=== PATIENT | female | born 2000 ===

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

== ENCOUNTER 2018-04-18 19:03 | Emergency (ER) | payer MEDICAID ==
[2018-04-18 19:04] VITALS: BMI 23.4
[2018-04-18 20:19] LABS: BASO # 0.03 K/mm3 (0.0-2.0); BASO % 0.3 % (0.0-3.0); EOS % 0.4 % (1.5-5.0); GRAN # 7.83 (1.4-6.5); GRAN % 73.1 % (50.0-68.0); LYMPH # 2.3 (1.2-3.4); LYMPH % 21.8 % (22.0-35.0); MEAN CELL VOLUME 86.9 fl (80.0-105.0); MEAN CORPUSCULAR HEMOGLOBIN 29.2 pg (25.0-35.0); MEAN CORPUSCULAR HGB CONC 33.6 g/dl (31.0-37.0); MEAN PLATELET VOLUME 9.6 fl (7.0-11.0); MONO # 0.5 (0.1-0.6); MONO % 4.4 % (1.0-6.0); RBC 4.8 10^6/uL (3.5-6.1); RED CELL DISTRIBUTION WIDTH 12.1 % (11.5-14.5); URINE APPEARANCE SLIGHT-CLOUDY (CLEAR); URINE BILIRUBIN NEGATIVE (NEGATIVE); URINE BLOOD TRACE-INTACT (NEGATIVE); URINE COLOR YELLOW (YELLOW); URINE GLUCOSE (UA) NEGATIVE (NEGATIVE); URINE LEUKOCYTE ESTERASE TRACE Leu/uL (NEGATIVE); URINE PROTEIN NEGATIVE mg/dL (<30 mg/dL); URINE UROBILINOGEN 0.2 E.U./dL (<1 E.U./dL); WHITE BLOOD COUNT 10.7 10^3/uL (4.5-11.0)
[2018-04-18 20:28] LABS: URINE EPITHELIAL CELLS 0 - 2 /hpf (0-5); URINE RBC 0 - 2 /hpf (0-2); URINE WBC 0 - 2 /hpf (0-6)
[2018-04-18 20:32] LABS: ALB/GLOB RATIO 1.5 (1.1-1.8); ALBUMIN 5.2 g/dL (3.0-4.8); ALT/SGPT 19 U/L (7-56); AST/SGOT 22 U/L (14-36); BLOOD UREA NITROGEN 12 mg/dL (7-21); GFR NON-AFRICAN AMERICAN > 60
[2018-04-18 20:50] LABS: BARBITURATES, UR NEGATIVE (NEGATIVE); BENZODIAZEPINES, UR NEGATIVE (NEGATIVE); PHENCYCLIDINE, UR NEGATIVE (NEGATIVE)
[2018-04-18 20:52] VITALS: TEMP 98.2; O2SAT 100
[2018-04-18 21:07] LABS: OPIATES, UR NEGATIVE (NEGATIVE)
--- NOTE | 2018-04-18 22:02 | ED PDOC ---
Arrival/HPI - General Chief Complaint: Psychiatric Evaluation Time Seen by Provider: 04/18/18 19:25 Historian: Patient - History of Present Illness Narrative History of Present Illness (Text): 04/18/18 21:58 17 yo F with PMH of depression, brought in the ER by EMS for evaluation of depression and anxiety, states that her mother called the ambulance because she "didn't feel well." On further questioning, the patient states that she just felt depressed. She states that she has seen a psychiatrist in the past and used to take medications for her depression, however has not taken any medicine x 3 years. Denies any SI, HI, hallucinations, headache, fever, N/V, abdominal pain. Has no other complaints. Past Medical History - Infectious Disease Hx of Infectious Diseases: None - Cardiac Hx Hypertension: No - Pulmonary Hx Respiratory Disorders: Yes Hx Asthma: Yes - Neurological Hx Seizures: No - HEENT Hx HEENT Disorder: No - Renal Hx Renal Disorder: No - Endocrine/Metabolic Hx Endocrine Disorders: No - Hematological/Oncological Hx Cancer: No - Integumentary Hx Dermatological Disorder: No - Musculoskeletal/Rheumatological Hx Musculoskeletal Disorders: No - Gastrointestinal Hx Gastrointestinal Disorders: No (Has recurrent abdominal pain (see HPI).) - Genitourinary/Gynecological Hx Sexually Transmitted Diseases: No - Psychiatric Hx Psychophysiologic Disorder: Yes Hx Anxiety: Yes Hx Depression: Yes Hx Substance Use: Yes - Anesthesia Hx Anesthesia: No Family/Social History Family/Social History: No Known Family HX Smoking Status: Never Smoked Hx Alcohol Use: No Hx Substance Use: Yes Substance used: marijuana Allergies/Home Meds Allergies/Adverse Reactions: Allergies No Known Allergies Allergy (Verified 08/14/15 16:14) Home Medications: Home Meds Medication Instructions Recorded Confirmed Albuterol HFA [Ventolin HFA 90 2 puff INH PRN PRN 08/15/15 04/28/17 mcg/actuation (8 g)] Review of Systems - Review of Systems Constitutional: absent: Fatigue, Fevers Respiratory: absent: SOB, Cough Cardiovascular: absent: Chest Pain, Palpitations Gastrointestinal: absent: Abdominal Pain, Nausea, Vomiting Skin: absent: Rash, Skin Lesions Neurological: absent: Headache, Dizziness Psychiatric: Anxiety, Depression Physical Exam Vital Signs Temp Pulse Resp BP Pulse Ox 04/18/18 19:40 98.2 F 71 16 112/62 100 Temperature: Afebrile Blood Pressure: Normal Pulse: Regular Respiratory Rate: Normal Appearance: Positive for: Well-Appearing, Non-Toxic, Comfortable Pain Distress: None Mental Status: Positive for: Alert and Oriented X 3 - Systems Exam Head: Present: Atraumatic, Normocephalic Pupils: Present: PERRL Extroacular Muscles: Present: EOMI Conjunctiva: Present: Normal Mouth: Present: Moist Mucous Membranes Neck: Present: Normal Range of Motion Respiratory/Chest: Present: Clear to Auscultation, Good Air Exchange. No: Respiratory Distress, Accessory Muscle Use Cardiovascular: Present: Regular Rate and Rhythm, Normal S1, S2. No: Murmurs Abdomen: No: Tenderness, Distention, Peritoneal Signs Back: Present: Normal Inspection Upper Extremity: Present: Normal Inspection. No: Cyanosis, Edema Lower Extremity: Present: Normal Inspection. No: Edema Neurological: Present: GCS=15, CN II-XII Intact, Speech Normal Skin: Present: Warm, Dry, Normal Color. No: Rashes Psychiatric: Present: Alert, Oriented x 3, Normal Insight, Normal Concentration Medical Decision Making ED Course and Treatment: 04/18/18 21:57 Labs reviewed, patient is medically cleared for crisis evaluation. Patient is seen and evaluated by crisis. As per crisis evaluation, decision made for outpatient follow up as per Dr. Johnson. - Lab Interpretations Lab Results: 04/18/18 20:00 04/18/18 20:00 Lab Results 04/18/18 20:00: Alcohol, Quantitative < 10 04/18/18 20:00: Urine Opiates Screen Negative, Urine Methadone Screen Negative, Ur Barbiturates Screen Negative, Ur Phencyclidine Scrn Negative, Ur Amphetamines Screen Negative, U Benzodiazepines Scrn Negative, U Oth Cocaine Metabols Negative, U Cannabinoids Screen Positive H 04/18/18 20:00: Sodium 140, Potassium 4.1, Chloride 104, Carbon Dioxide 23, Anion Gap 17, BUN 12, Creatinine 0.7, Est GFR ( Amer) > 60, Est GFR (Non- Af Amer) > 60, Random Glucose 91, Calcium 10.0, Magnesium 2.1, Total Bilirubin 0.5, AST 22, ALT 19, Alkaline Phosphatase 70, Total Protein 8.6 H, Albumin 5.2 H , Globulin 3.4, Albumin/Globulin Ratio 1.5 04/18/18 20:00: Urine Color Yellow, Urine Appearance Slight-cloudy, Urine pH 6.0, Ur Specific [place] 1.025, Urine Protein Negative, Urine Glucose (UA) Negative, Urine Ketones Trace H, Urine Blood Trace-intact H, Urine Nitrate Negative, Urine Bilirubin Negative, Urine Urobilinogen 0.2, Ur Leukocyte Esterase Trace H, Urine RBC 0 - 2, Urine WBC 0 - 2, Ur Epithelial Cells 0 - 2 04/18/18 20:00: WBC 10.7, RBC 4.80, Hgb 14.0, Hct 41.7, MCV 86.9, MCH 29.2, MCHC 33.6, RDW 12.1, Plt Count 274, MPV 9.6, Gran % 73.1 H, Lymph % (Auto) 21.8 L, [place] % (Auto) 4.4, Eos % (Auto) 0.4 L, Baso % (Auto) 0.3, Gran # 7.83 H, Lymph # (Auto) 2.3, [place] # (Auto) 0.5, Eos # (Auto) 0.0, Baso # (Auto) 0.03 - PA / WELT RANDER / Resident Statement MD/DO has reviewed & agrees with the documentation as recorded. Disposition/Present on Arrival - Present on Arrival Any Indicators Present on Arrival: No History of DVT/PE: No History of Uncontrolled Diabetes: No Urinary Catheter: No History of Decub. Ulcer: No History Surgical Site Infection Following: None - Disposition Have Diagnosis and Disposition been Completed?: Yes Diagnosis: Depression Disposition: HOME/ ROUTINE Disposition Time: 22:00 Patient Plan: Discharge Patient Problems: Current Active Problems Problem Status Onset Depression Acute Condition: STABLE Discharge Instructions (ExitCare): Depression Additional Instructions: Thank you for letting us take care of you today. You were treated for depression. The emergency medical care you received today was directed at your acute symptoms. Return to the Emergency Department if your symptoms worsen, do not improve, or if you have any other problems. Please contact your doctor in 2 days for re-evaluation and follow up / or mental health fascility in [place]. Bring any paperwork you were given at discharge with you along with any medications you are taking to your follow up visit. Our treatment cannot replace ongoing medical care by a primary care provider (PCP) outside of the emergency department. Thank you for allowing the [facility] team to be part of your care today. Referrals: Antonieta Adams MD [Primary Care Provider] - Follow up with primary
[2018-04-19 00:14] VITALS: BP 116/72; PULSE 78; RESP 18
== END 2018-04-18 22:51 | disposition home or self-care (01) ==
LOC: ED 19:03
DX: F32.9 Major depressive disorder, single episode, unspecified (principal)

== ENCOUNTER 2018-09-17 22:01 | Emergency (ER) | payer MEDICAID ==
[2018-09-17 22:01] VITALS: BMI 23.4
--- NOTE | 2018-09-17 22:45 | ED PDOC ---
Arrival/HPI <Keegan Medel - Last Filed: 09/17/18 23:28> - General Historian: Patient - History of Present Illness Narrative History of Present Illness (Text): 09/17/18 22:44 18-year-old female with a history of depression presents today with depression and suicidal ideation. Patient states she just does not feel happy with herself. She denies chest pain or shortness of breath. No dizziness or weakness. No abdominal pain. No urinary symptoms. Patient admits to using marijuana. Denies alcohol use. Denies suicide attempt at home. No other complaints <Mary Lou Chairez - Last Filed: 09/18/18 02:38> - General Chief Complaint: Psychiatric Evaluation Time Seen by Provider: 09/17/18 22:03 Past Medical History - Provider Review Nursing Documentation Reviewed: Yes - Travel History Have you recently traveled outside [place] w/in the past 3 mons?: No - Infectious Disease Hx of Infectious Diseases: None - Cardiac Hx Hypertension: No - Pulmonary Hx Respiratory Disorders: Yes Hx Asthma: Yes - Neurological Hx Seizures: No - HEENT Hx HEENT Disorder: No - Renal Hx Renal Disorder: No - Endocrine/Metabolic Hx Endocrine Disorders: No - Hematological/Oncological Hx Cancer: No - Integumentary Hx Dermatological Disorder: No - Musculoskeletal/Rheumatological Hx Musculoskeletal Disorders: No - Gastrointestinal Hx Gastrointestinal Disorders: No (Has recurrent abdominal pain (see HPI).) - Genitourinary/Gynecological Hx Sexually Transmitted Diseases: No - Psychiatric Hx Psychophysiologic Disorder: Yes Hx Anxiety: Yes Hx Depression: Yes Hx Substance Use: Yes - Anesthesia Hx Anesthesia: No <Mary Lou Chairez - Last Filed: 09/18/18 02:38> Family/Social History - Physician Review Nursing Documentation Reviewed: Yes Family/Social History: Unknown Family HX Smoking Status: Never Smoked Hx Alcohol Use: No Hx Substance Use: Yes Substance used: marijuana <Mary Lou Chairez - Last Filed: 09/18/18 02:38> Allergies/Home Meds <Keegan Medel - Last Filed: 09/17/18 23:28> <Mary Lou Chairez - Last Filed: 09/18/18 02:38> Allergies/Adverse Reactions: Allergies No Known Allergies Allergy (Verified 08/14/15 16:14) Home Medications: Home Meds Medication Instructions Recorded Confirmed Albuterol HFA [Ventolin HFA 90 2 puff INH PRN PRN 08/15/15 04/28/17 mcg/actuation (8 g)] Review of Systems - Review of Systems Constitutional: absent: Fatigue, Fevers Respiratory: absent: SOB, Cough Cardiovascular: absent: Chest Pain, Palpitations Gastrointestinal: absent: Abdominal Pain, Nausea, Vomiting Musculoskeletal: absent: Arthralgias, Back Pain, Neck Pain Skin: absent: Rash, Pruritis Neurological: absent: Headache, Dizziness Psychiatric: Depression, Suicidal Ideation <Mary Lou Chairez - Last Filed: 09/18/18 02:38> Physical Exam Vital Signs Temp Pulse Resp BP Pulse Ox 09/17/18 23:03 97.8 F 70 18 103/69 99 <Keegan Medel - Last Filed: 09/17/18 23:28> Vital Signs Reviewed: Yes Temperature: Afebrile Blood Pressure: Normal Pulse: Regular Respiratory Rate: Normal Appearance: Positive for: Well-Appearing, Non-Toxic, Comfortable Pain Distress: None Mental Status: Positive for: Alert and Oriented X 3 - Systems Exam Head: Present: Atraumatic Mouth: Present: Moist Mucous Membranes Neck: Present: Normal Range of Motion Respiratory/Chest: Present: Clear to Auscultation, Good Air Exchange. No: Respiratory Distress, Accessory Muscle Use Cardiovascular: Present: Regular Rate and Rhythm, Normal S1, S2. No: Murmurs Abdomen: No: Tenderness, Distention Upper Extremity: Present: Normal ROM Lower Extremity: Present: Normal ROM Neurological: Present: GCS=15, Speech Normal Skin: Present: Warm, Dry, Normal Color. No: Rashes Psychiatric: Present: Alert, Oriented x 3 <Mary Lou Chairez - Last Filed: 09/18/18 02:38> Medical Decision Making - Lab Interpretations Lab Results: Urine Color Yellow (YELLOW) 09/17/18 22: Urine Appearance Clear (CLEAR) 09/17/18 22: Urine pH 6.0 (4.7-8.0) 09/17/18 22: Ur Specific [place] 1.025 (1.005-1.035) 09/17/18 22: Urine Protein Trace mg/dL (<30 mg/dL) H 09/17/18 22: Urine Glucose (UA) Negative mg/dL (NEGATIVE) 09/17/18 22:19 Urine Ketones Negative mg/dL (NEGATIVE) 09/17/18 22:19 Urine Blood Moderate (NEGATIVE) H 09/17/18 22:19 Urine Nitrate Negative (NEGATIVE) 09/17/18 22:19 Urine Bilirubin Negative (NEGATIVE) 09/17/18 22:19 Urine Urobilinogen 0.2 E.U./dL (<1 E.U./dL) 09/17/18 22:19 Ur Leukocyte Esterase Negative Hank/uL (NEGATIVE) 09/17/18 22:19 - RAD Interpretation Radiology Orders: 09/17/18 22:37 CHEST PORTABLE [RAD] Stat <Keegan Medel - Last Filed: 09/17/18 23:28> ED Course and Treatment: 09/17/18 22:45 Patient is nontoxic well-appearing in no distress vital signs are stable. pt placed on 1:1 CBC WNL CMP WNL Tylenol WNL Salicylate WNL Alcohol level WNL Urine drug screen + marijuana UA; + blood cxr: wnl ekg normal sinus rhythm with sinus arrhythmia at 74 bpm normal axis normal intervals no ST elevations pt is medically cleared for PES evaluation Patient was seen and evaluated by PES screener: Kalpana Patient cleared psychiatrically for discharge Impression; depression [facility] within the next 2 days. follow up with the primary care physician within the next 2 days. return immediately if symptoms worsen, persist or if new symptoms develop - RAD Interpretation Radiology Orders: 09/17/18 22:37 CHEST PORTABLE [RAD] Stat <Mary Lou Chairez - Last Filed: 09/18/18 02:38> - PA / [employer] SALESPERSON / Resident Statement /DO has reviewed & agrees with the documentation as recorded. <Keegan Medel - Last Filed: 09/17/18 23:28> Disposition/Present on Arrival <Keegan Medel - Last Filed: 09/17/18 23:28> - Present on Arrival Any Indicators Present on Arrival: No History of DVT/PE: No History of Uncontrolled Diabetes: No Urinary Catheter: No History of Decub. Ulcer: No History Surgical Site Infection Following: None - Disposition Have Diagnosis and Disposition been Completed?: Yes Disposition Time: 01:45 Patient Plan: Discharge <Mary Lou Chairez - Last Filed: 05/20/19 02:38> - Disposition Diagnosis: Depression Disposition: HOME/ ROUTINE Patient Problems: Current Active Problems Problem Status Onset Depression Acute Condition: GOOD Discharge Instructions (ExitCare): Depression, Adult (DC) Additional Instructions: [facility] with [facility] within the next 2 days. follow up with the primary care physician within the next 2 days. return immediately if symptoms worsen, persist or if new symptoms develop Referrals: [facility] [Outside] - Follow up with primary [facility] [Outside] - Follow up with primary Evie Boykin MD [Medical Doctor] - Follow up with primary Forms: [employer] (B[place]ian), WORK NOTE, SCHOOL NOTE
[2018-09-17 23:04] VITALS: RESP 18; TEMP 97.8; O2SAT 99
[2018-09-17 23:21] LABS: BASO # 0.03 K/mm3 (0.0-2.0); BASO % 0.4 % (0.0-3.0); EOS # 0.1 (0.0-0.7); EOS % 0.7 % (1.5-5.0); HEMOGLOBIN 12.5 g/dL (12.0-16.0); LYMPH # 2.1 (1.2-3.4); MEAN CELL VOLUME 86.3 fl (80.0-105.0); MEAN CORPUSCULAR HEMOGLOBIN 28.1 pg (25.0-35.0); MEAN CORPUSCULAR HGB CONC 32.6 g/dl (31.0-37.0); MEAN PLATELET VOLUME 10.1 fl (7.0-11.0); MONO # 0.4 (0.1-0.6); MONO % 4.9 % (1.0-6.0); RBC 4.45 10^6/uL (3.5-6.1); RED CELL DISTRIBUTION WIDTH 11.9 % (11.5-14.5); WHITE BLOOD COUNT 7.3 10^3/uL (4.5-11.0)
[2018-09-17 23:22] LABS: URINE BILIRUBIN NEGATIVE (NEGATIVE); URINE BLOOD MODERATE (NEGATIVE); URINE GLUCOSE (UA) NEGATIVE (NEGATIVE); URINE LEUKOCYTE ESTERASE NEGATIVE Leu/uL (NEGATIVE); URINE PROTEIN TRACE mg/dL (<30 mg/dL); URINE UROBILINOGEN 0.2 E.U./dL (<1 E.U./dL)
[2018-09-17 23:27] LABS: URINE APPEARANCE CLEAR (CLEAR); URINE COLOR YELLOW (YELLOW)
[2018-09-17 23:31] LABS: ALB/GLOB RATIO 1.7 (1.1-1.8); ALBUMIN 4.6 g/dL (3.0-4.8); ALT/SGPT 23 U/L (7-56); AST/SGOT 21 U/L (14-36); BLOOD UREA NITROGEN 11 mg/dL (7-21); CALCIUM 9.3 mg/dL (8.4-10.5); GFR NON-AFRICAN AMERICAN > 60
[2018-09-17 23:38] LABS: SALICYLATE < 1 mg/dL (2.0-20.0)
[2018-09-17 23:39] LABS: ACETAMINOPHEN < 10.0 ug/ml (10.0-20.0)
[2018-09-17 23:50] LABS: BARBITURATES, UR NEGATIVE (NEGATIVE); BENZODIAZEPINES, UR NEGATIVE (NEGATIVE); OPIATES, UR NEGATIVE (NEGATIVE); PHENCYCLIDINE, UR NEGATIVE (NEGATIVE)
[2018-09-18 00:02] LABS: URINE WBC 0 - 2 /hpf (0-6)
[2018-09-18 02:12] VITALS: BP 106/68; PULSE 66
--- NOTE | 2018-09-18 10:10 | RAD ---
Date of service: 09/17/2018 HISTORY: pes eval COMPARISON: No prior. TECHNIQUE: 1 view obtained. FINDINGS: LUNGS: No active pulmonary disease. PLEURA: No significant pleural effusion identified, no pneumothorax apparent. CARDIOVASCULAR: No aortic atherosclerotic calcification present. Normal cardiac size. No pulmonary vascular congestion. OSSEOUS STRUCTURES: No significant abnormalities. VISUALIZED UPPER ABDOMEN: Normal. OTHER FINDINGS: None. IMPRESSION: No active disease.
--- NOTE | 2018-09-18 11:40 | CARD ---
APPROVED REPORT Date of service: 09/17/2018 EKG Measurement Heart [id number] <Conclusion> Normal sinus rhythm with sinus arrhythmia Normal ECG
== END 2018-09-18 02:49 | disposition home or self-care (01) ==
LOC: ED 22:01
DX: F32.9 Major depressive disorder, single episode, unspecified (principal)